=== PATIENT | female | born 1955 | race Caucasian/White ===

== ENCOUNTER 2022-05-09 10:07 | Outpatient (CLI) | payer MEDICARE, SELFPAY ==
--- NOTE | 2022-05-09 10:00 | RT.EKG_ITS ---
APPROVED REPORT Exam: Resting ECG Reason for Exam: palpitations Patient Location: O HR:61 bpm ECG Measurements Heart Rate 61 AXIS TX 164 P 36 QRSd 144 QRS 14 QT 445 T 16 QTc 449 Conclusion Sinus rhythm...normal P axis, V-rate 50- 99 Right bundle branch block...QRSd>120, terminal axis(90,270)
== END 2022-05-09 10:08 | disposition home or self-care (01) ==
LOC: DI.CM 10:07
PROVIDERS: PCP Family Medicine; Visit Provider Nurse Practitioner Family
DX: R00.2 Palpitations; I45.10 Unspecified right bundle-branch block
CPT/HCPCS: 93010

== ENCOUNTER 2022-05-09 10:52 | Outpatient (REF) | payer MEDICARE, SELFPAY ==
[2022-05-09 12:21] LABS: HCT 44.2 % (36.0-46.0); HGB 14.4 g/dL (11.2-15.7); MCH 28.7 pg (27.0-33.0); MCHC 32.6 % (32.0-36.0); MCV 88 fL (80-95); MPV 10.8 fL (8.0-11.0); Platelet Count 290 10^3/uL (130-400); RBC 5.02 10^6/uL (3.93-5.22); RDW 13.9 % (11.7-14.6); RDW-SD 44.6 fL
[2022-05-09 12:37] LABS: ALT 29 U/L (14-59); AST 21 U/L (15-37); Albumin 3.8 g/dL (3.4-5.0); Alkaline Phosphatase 107 U/L (46-116); Anion Gap 8.6 mmol/L (3-11); BUN 11 mg/dL (7-18); Bilirubin, Total 0.4 mg/dL (0.2-1.0); CO2 30.4 mmol/L (21.0-32.0); CREATININE 0.7 mg/dL (0.55-1.02); Calcium 9.3 mg/dL (8.5-10.1); Chloride 106 mmol/L (98-107); Estimated GFR 93.56 (mL/min/1.73m2); Glucose 104 mg/dL (74-106); Magnesium 2.1 mg/dL (1.8-2.4); Potassium 4.4 mmol/L (3.5-5.1); Sodium 145 mmol/L (136-145); Total Protein 7.3 g/dL (6.4-8.2)
== END 2022-05-09 10:53 | disposition home or self-care (01) ==
LOC: LBN 10:52
PROVIDERS: PCP Family Medicine; Visit Provider Nurse Practitioner Family
DX: R00.2 Palpitations (principal); R42 Dizziness and giddiness; R07.89 Other chest pain
CPT/HCPCS: 80053; 85027; 83735

== ENCOUNTER 2024-01-08 05:25 | Emergency (ER) | payer MEDICARE, SELFPAY ==
[2024-01-08] VITALS (17 sets, daily range): BP systolic 160–182; BP diastolic 61–91; PULSE 66–89; RESP 16–18; TEMP 36.9; O2SAT 95–100
--- NOTE | 2024-01-08 06:00 | DI.CT_ITS ---
Exam(s) CT ABDOMEN PELVIS CTA EXAM: CT ABDOMEN PELVIS CTA CLINICAL HISTORY: gi bleed. TECHNIQUE: Imaging Protocol: Axial CT angiography was performed with multi-slice acquisition and m ulti-planar and/or 3D reconstructions. CONTRAST MATERIAL: Intravenous: Omnipaque 350 Contrast volume:100 mL Oral: no COMPARISON: No exams were available for comparison FINDINGS: Vascular Structures: Minimal atherosclerotic changes. Celiac [place]:No evidence of stenosis. SMA: No evidence of stenosis. Renal Arteries: No evidence of stenosis. There is a single renal artery perfusing each kidney. Aorta: No aneurysm. No dissection. No significant stenosis. Iliac Arteries: No evidence of stenosis. Common Femoral Arteries: No evidence of stenosis. Soft Tissues:Small fat containing umbilical hernia. Lung bases:No acute findings. Liver: Enlarged. Moderate fatty infiltration. No measurable mass. Gallbladder and biliary tract: No evidence of calculi. No gallbladder wall thickening. No biliary di lation. Pancreas: Normal density, no abnormal calcifications or inflammatory process. Spleen: Normal. Kidneys: Normal size, contour and axis. No obstructive uropathy. No masses seen. Parapelvic cysts. No evidence of calculi. Adrenal glands: No masses seen. Bladder: Nearly empty. No gross wall thickening. No evidence of calculi. No evidence of mass. Bowel: No obstruction. Transverse colon through rectum contains very little stool. Question wall th ickening versus nondistention of the descending colon. No site of active GI bleeding identified. Peritoneal cavity: No ascites. No focal collection. No mesenteric inflammatory response. Bones: No acute findings. Degenerative changes in the spine and hips. Lymph nodes: Within normal limits. Reproductive: Calcified fibroid. IMPRESSION: No evidence active GI bleed. Question of thickening of the descending colon which could indicate col itis versus nondistention. RADIATION DOSE DELIVERED: 2,061.09mGy.cm Total DLP DATA REPOSITORY: All CT scans at this facility are submitted to the National Radiology Data Registry (NRDR) Dose Index Registry (DIR) with the [employer] (A[employer]). RADIATION OPTIMIZATION: All CT scans at this facility use at least one of these dose optimization te chniques: automated exposure control; mA and/or kV adjustment per patient size (includes targeted exa ms where dose is matched to clinical indication); or iterative reconstruction.
[2024-01-08 06:19] LABS: Abs Immature Grans 0.02 10^3/uL (0.0-0.06); Absolute Basophil Count 0.04 10^3/uL (0.0-0.2); Absolute Eosinophil Count 0.06 10^3/uL (0.0-0.7); Absolute Lymphocyte Count 1.61 10^3/uL (1.2-3.4); Absolute Monocyte Count 0.51 10^3/uL (0.1-0.8); Absolute Neutrophil Count 6.61 10^3/uL (1.2-6.7); Basophils % 0.5 %; Eosinophils % 0.7 %; HCT 42.9 % (36.0-46.0); HGB 13.5 g/dL (11.2-15.7); Immature Grans % 0.2 %; Lymphocytes % 18.2 %; MCH 28.4 pg (27.0-33.0); MCHC 31.5 % (32.0-36.0); MCV 90 fL (80-95); MPV 11.1 fL (8.0-11.0); Monocytes % 5.8 %; Neutrophils % 74.6 %; Platelet Count 374 10^3/uL (130-400); RBC 4.76 10^6/uL (3.93-5.22); RDW 13.9 % (11.7-14.6); RDW-SD 46.5 fL; WBC 8.85 10^3/uL (4.4-10.8)
--- NOTE | 2024-01-08 06:27 | NUR.NOTE ---
Nursing Note:pt ambulated to the BR, had looses fatty stool with dark red blood noted, MD aware
[2024-01-08 06:34] LABS: PTT Activated 28.3 sec (23.6-32.8); Prothrombin Time 9.9 sec (9.1-11.1)
[2024-01-08 06:37] LABS: ALT 26 U/L (14-59); AST 20 U/L (15-37); Albumin 3.9 g/dL (3.4-5.0); Alkaline Phosphatase 147 U/L (46-116); BUN 14 mg/dL (7-18); Bilirubin, Total 0.52 mg/dL (0.2-1.0); CREATININE 0.9 mg/dL (0.55-1.02); Calcium 9.6 mg/dL (8.5-10.1); Chloride 104 mmol/L (98-107); Estimated GFR 68.77 (mL/min/1.73m2); Glucose 122 mg/dL (74-106); Lipase 36 U/L (<78); Sodium 142 mmol/L (136-145); Total Protein 7.9 g/dL (6.4-8.2)
--- NOTE | 2024-01-08 06:43 | W.PCEDHO ---
Registration Status: Primary Language: Preferred Language: ED Information & Data Chief Complaint Abd Prob 01/08/24 05:42 Chief Complaint Abd Prob 01/08/24 05:37 Triage Note pt states that she has been 01/08/24 05:37 having constipation and then began to have severe abd pain/cramping then had a bm, each time she had cramps she had to go to the BR the pt stated that she began to have diarrhea and then later in the night noticed that there was blood in the toilet, stated that it was dark in color and then was a medium red. Slight nausea. recently had total right knee replacement in Nov Medical / Surgical History (Last Reviewed 05/09/22 @ 09:52 by Kimberly Middleton NP) Ductal carcinoma Ductal carcinoma in situ (DCIS) of right breast (Last Reviewed 05/09/22 @ 09:52 by Kimberly Middleton NP) Biopsy of breast Most Recent Vital Signs Temperature 36.9 C 01/08/24 05:42 Temperature Source Temporal Artery Scan 01/08/24 05:37 Pulse 70 01/08/24 06:29 Respiratory Rate 16 01/08/24 06:29 Respiratory Effort Normal 01/08/24 06:11 Respiratory Depth Normal 01/08/24 06:11 Respiratory Pattern Normal 01/08/24 06:11 Blood Pressure 182/70 H 01/08/24 06:29 Blood Pressure Mean 103 01/08/24 06:11 Blood Pressure Position Sitting 01/08/24 05:42 Pulse Oximetry 99 01/08/24 06:29 Oxygen Delivery Method Room Air 01/08/24 06:29 Oxygen Flow Rate 0 01/08/24 06:29 Pain Level 2 01/08/24 05:42 Allergies Penicillins Allergy (Unverified 01/08/24 05:47) unknown-occurred as Opioids - Morphine Analogues Adverse Reaction (Unknown, Unverified 01/08/24 05:47) feels like head races IV IV Catheter Type [Left Saline Lock Antecubital] IV Catheter Gauge [Left 18 Antecubital] Diagnostics 01/08/24 01/08/24 Range/Units 06:21 05:36 WBC 8.85 (4.4-10.8) 10^3/uL RBC 4.76 (3.93-5.22) 10^6/uL Hgb 13.5 (11.2-15.7) g/dL Hct 42.9 (36.0-46.0) % MCV 90 (80-95) fL MCH 28.4 (27.0-33.0) pg MCHC 31.5 L (32.0-36.0) % RDW 13.9 (11.7-14.6) % Plt Count 374 (130-400) 10^3/uL MPV 11.1 H (8.0-11.0) fL Immature Gran % 0.2 % Neutrophils % 74.6 % Lymphocytes % 18.2 % Monocytes % 5.8 % Eosinophils % 0.7 % Basophils % 0.5 % Nucleated RBC % 0.0 (0.0-0.3) % Absolute Neutrophils 6.61 (1.2-6.7) 10^3/uL Absolute Lymphocytes 1.61 (1.2-3.4) 10^3/uL Absolute Monocytes 0.51 (0.1-0.8) 10^3/uL Absolute Eosinophils 0.06 (0.0-0.7) 10^3/uL Absolute Basophils 0.04 (0.0-0.2) 10^3/uL PT 9.9 (9.1-11.1) sec INR 1.0 (0.9-1.1) APTT 28.3 (23.6-32.8) sec VBG Lactate 1.0 (0.6-1.4) mmol/L Sodium 142 (136-145) mmol/L Potassium 4.0 (3.5-5.1) mmol/L Chloride 104 (98-107) mmol/L Carbon Dioxide 27.0 (21.0-32.0) mmol/L Anion Gap 11.0 (3-11) mmol/L BUN 14 (7-18) mg/dL Creatinine 0.9 (0.55-1.02) mg/dL Est GFR (CKD-EPI 2020) 68.77 (mL/min/1.73m2) Glucose 122 H (74-106) mg/dL Calcium 9.6 (8.5-10.1) mg/dL Magnesium 2.0 (1.8-2.4) mg/dL Total Bilirubin 0.52 (0.2-1.0) mg/dL AST 20 (15-37) U/L ALT 26 (14-59) U/L Alkaline Phosphatase 147 H (46-116) U/L Total Protein 7.9 (6.4-8.2) g/dL Albumin 3.9 (3.4-5.0) g/dL Lipase 36 (<78) U/L Intake and Output - 24 Hour Total 01/08/24 05:25 thru 01/08/24 06:10 Weight 98.43 kg Other: Stool Occult Blood Positive Stool Characteristics Mucoid Brown Bloody Falls Risk Assessment History of Falls No History 01/08/24 05:42 Contributing Factors No Factors 01/08/24 05:42 Ambulatory Aids Independent 01/08/24 05:42 Tubes/Lines W/no contributing factors 01/08/24 05:42 Gait Evaluation No gait disturbance 01/08/24 05:42 Cognition No cognitive impairment 01/08/24 05:42 Fall Total Score 10 01/08/24 05:42 Level of Risk Standard/Low Risk 01/08/24 05:42 Notes 01/08/24 06:27 Nursing Notes by Marquis Bates Nursing Note:pt ambulated to the BR, had looses fatty stool with dark red blood noted, MD aware Initialized on 01/08/24 06:27 - END OF NOTE v v v v v v v v v Sending and/or Receiving Nurses: Please use comment section below to note any information pertinent to the patient hand-off not included above. Information / Comments: Report received from: Marquis Bates, RN @ 0640 01/08/24
--- NOTE | 2024-01-08 06:45 | ED.GENADUL_ITS ---
Discharge Plan Discharge Details Chief Complaint: Abd Prob Primary Care Provider: Fuentes [facility] ED Provider: Ashleigh Mendoza Home Meds and New Rx's Prescriptions: No Action multivitamin [One Daily Essential] 1 EACH tablet 1 ea PO DAILY celecoxib [Celebrex] 100 MG capsule 100 mg PO DAILY aspirin 325 mg tablet,delayed release (DR/EC) 325 mg PO ONCE cyclobenzaprine 5 mg tablet 5 mg PO DAILY Patient Comments: TAKE 1 TO 2 TABLETS BY MOUTH EVERY 8 HOURS NEEDED FOR PAIN AND FOR MUSCLE SPASM MAY CAUSE DROWSINESS HPI General Mode of arrival: ambulatory . Date/Time Provider Initiated Documentation: 01/08/24 05:45 . Limitations to Documentation: no limitations . Information obtained by: patient . HPI Narrative: 68yo F with hx knee replacement 1 month ago, otherwise healthy, presenting for abdominal pain and rectal bleeding. Symptoms started yesterday evening, diffuse severe abdominal cramping followed by watery diarrhea. As the night went on began to have bright red blood in her stool, last bowel movement about 30 minutes prior to arrival seemed 'almost all blood'. No melena/dark/tarry stool. Mild nausea, no vomiting. Pain was initially intermittent but is now constant. No alleviating or aggravating factors. Has never had anything like this happen before. No chest pain, shortness of breath, or lightheadedness. Taking aspirin post knee replacement, celebrex daily. Otherwise in her usual state of health with no fevers, chills, rash, back pain, dysuria, or other anastacio rns. Related Data Home Medications ?Medication ?Instructions ?Recorded ?Confirmed Celebrex 100 mg capsule (celecoxib) 100 mg PO DAILY 04/15/14 01/08/24 One Daily Essential (multivitamin) 1 ea PO DAILY 04/15/14 01/08/24 aspirin 325 mg tablet,delayed 325 mg PO ONCE 01/08/24 01/08/24 release cyclobenzaprine 5 mg tablet 5 mg PO DAILY 01/08/24 01/08/24 Allergies Allergy/AdvReac Type Severity Reaction Status Date / Time Penicillins Allergy unknown-occurred Unverified 01/08/24 05:47 as infant Opioids - Morphine Analogues AdvReac Unknown feels like Unverified 01/08/24 05:47 head races General Stated Complaint: Abd Prob VICTORIANO: 3 Review of Systems Narrative: see HPI Exam Narrative Exam Narrative: General: Alert, well appearing, well nourished, in no acute distress. Head: Normocephalic, atraumatic Neck: Trachea midline, ?Neck supple. ENT: ?MMM.? No oropharygeal lesions or exudate. Cardiac: ?RRR, no murmurs appreciated Resp: No respiratory distress. CTAB. Abd: ?Soft, non-distended, diffusely TTP with no rebound or guarding : ?No suprapubic tenderness. Rectal: Normal externa exam. No active bleeding. Normal digital exam, scant brown/mucousy stool on glove, no blood. Extremities: ?No deformities.? No peripheral edema. Neurologic: GCS 15. ? Moves all extremities freely against gravity Course Vital Signs Vital signs: Vital Signs Temperature 36.9 C 01/08/24 05:37 Pulse 89 01/08/24 05:37 Respiratory Rate 18 01/08/24 05:37 Blood Pressure 172/91 H 01/08/24 05:37 Pulse Oximetry 98 01/08/24 05:37 Temperature 36.9 C 01/08/24 05:42 Temperature Source Temporal Artery Scan 01/08/24 05:37 Pulse 70 01/08/24 06:29 Respiratory Rate 16 01/08/24 06:29 Respiratory Effort Normal 01/08/24 06:11 Respiratory Depth Normal 01/08/24 06:11 Respiratory Pattern Normal 01/08/24 06:11 Blood Pressure 182/70 H 01/08/24 06:29 Blood Pressure Mean 103 01/08/24 06:11 Blood Pressure Position Sitting 01/08/24 05:42 Pulse Oximetry 99 01/08/24 06:29 Oxygen Delivery Method Room Air 01/08/24 06:29 Oxygen Flow Rate 0 01/08/24 06:29 Pain Level 2 01/08/24 05:42 Lab/Test Results Lab/Test Results: Laboratory Tests Range/Units 01/08/24 01/08/24 05:36 06:21 WBC (4.4-10.8) 10^3/uL 8.85 RBC (3.93-5.22) 10^6/uL 4.76 Hgb (11.2-15.7) g/dL 13.5 Hct (36.0-46.0) % 42.9 MCV (80-95) fL 90 MCH (27.0-33.0) pg 28.4 MCHC (32.0-36.0) % 31.5 L RDW (11.7-14.6) % 13.9 Plt Count (130-400) 10^3/uL 374 MPV (8.0-11.0) fL 11.1 H Immature Gran % % 0.2 Neutrophils % % 74.6 Lymphocytes % % 18.2 Monocytes % % 5.8 Eosinophils % % 0.7 Basophils % % 0.5 Nucleated RBC % (0.0-0.3) % 0.0 Absolute Neutrophils (1.2-6.7) 10^3/uL 6.61 Absolute Lymphocytes (1.2-3.4) 10^3/uL 1.61 Absolute Monocytes (0.1-0.8) 10^3/uL 0.51 Absolute Eosinophils (0.0-0.7) 10^3/uL 0.06 Absolute Basophils (0.0-0.2) 10^3/uL 0.04 PT (9.1-11.1) sec 9.9 INR (0.9-1.1) 1.0 APTT (23.6-32.8) sec 28.3 VBG Lactate (0.6-1.4) mmol/L 1.0 Sodium (136-145) mmol/L 142 Potassium (3.5-5.1) mmol/L 4.0 Chloride (98-107) mmol/L 104 Carbon Dioxide (21.0-32.0) mmol/L 27.0 Anion Gap (3-11) mmol/L 11.0 BUN (7-18) mg/dL 14 Creatinine (0.55-1.02) mg/dL 0.9 Est GFR (CKD-EPI 2020) (mL/min/1.73m2) 68.77 Glucose (74-106) mg/dL 122 H Calcium (8.5-10.1) mg/dL 9.6 Magnesium (1.8-2.4) mg/dL 2.0 Total Bilirubin (0.2-1.0) mg/dL 0.52 AST (15-37) U/L 20 ALT (14-59) U/L 26 Alkaline Phosphatase (46-116) U/L 147 H Total Protein (6.4-8.2) g/dL 7.9 Albumin (3.4-5.0) g/dL 3.9 Lipase (<78) U/L 36 Medical Decision Making 68yo F with hx knee replacement 1 month ago, otherwise healthy, presenting for abdominal pain and rectal bleeding. Symptoms started yesterday evening, diffuse severe abdominal cramping followed by watery diarrhea and subsequently bright red blood per rectum. Otherwise well, no lightheadedness or chest pain. Taking ASA and celebrex. Hypertensive on arrival, vital signs otherwise reassuring. Diffuse abdominal tenderness on exam with no rebound or guarding, rectal exam with no active bleeding and no blood on digital exam. Suspect lower GI bleed (brisk upper GI also possible though would expect more hemocynamic instability). Pt with no risk factors for esophageal varices; is on ASA/celebrex raising concern for bleeding ulcer. Exam not concerning for perforated ulcer. Will give zofran for nausea, get labs/CT. -Labs reviewed as below, CBC reassuring with no leukocytosis or anemia, CMP with no actionable abnormalities, coags normal, lactate normal (unlikely mesenteric ischemia and no pain out of proportion) Subsequently did have very small bowel movement in the ED, brown stool mixed with scant amount bright red/mucousy blood. [place] Score 7 (low risk lower GI bleed), Ailyn-Blatchford score 0 (low-risk upper GI bleed); if remains stable without significant bleeding would consider discharge home to outpatient followup. Signed out to lauren bazan, plan to followup CT and reassess. Lab Data Lab results reviewed: Yes I reviewed the patient's lab results. Labs: Laboratory Tests Range/Units 01/08/24 01/08/24 05:36 06:21 WBC (4.4-10.8) 10^3/uL 8.85 RBC (3.93-5.22) 10^6/uL 4.76 Hgb (11.2-15.7) g/dL 13.5 Hct (36.0-46.0) % 42.9 MCV (80-95) fL 90 MCH (27.0-33.0) pg 28.4 MCHC (32.0-36.0) % 31.5 L RDW (11.7-14.6) % 13.9 Plt Count (130-400) 10^3/uL 374 MPV (8.0-11.0) fL 11.1 H Immature Gran % % 0.2 Neutrophils % % 74.6 Lymphocytes % % 18.2 Monocytes % % 5.8 Eosinophils % % 0.7 Basophils % % 0.5 Nucleated RBC % (0.0-0.3) % 0.0 Absolute Neutrophils (1.2-6.7) 10^3/uL 6.61 Absolute Lymphocytes (1.2-3.4) 10^3/uL 1.61 Absolute Monocytes (0.1-0.8) 10^3/uL 0.51 Absolute Eosinophils (0.0-0.7) 10^3/uL 0.06 Absolute Basophils (0.0-0.2) 10^3/uL 0.04 PT (9.1-11.1) sec 9.9 INR (0.9-1.1) 1.0 APTT (23.6-32.8) sec 28.3 VBG Lactate (0.6-1.4) mmol/L 1.0 Sodium (136-145) mmol/L 142 Potassium (3.5-5.1) mmol/L 4.0 Chloride (98-107) mmol/L 104 Carbon Dioxide (21.0-32.0) mmol/L 27.0 Anion Gap (3-11) mmol/L 11.0 BUN (7-18) mg/dL 14 Creatinine (0.55-1.02) mg/dL 0.9 Est GFR (CKD-EPI 2020) (mL/min/1.73m2) 68.77 Glucose (74-106) mg/dL 122 H Calcium (8.5-10.1) mg/dL 9.6 Magnesium (1.8-2.4) mg/dL 2.0 Total Bilirubin (0.2-1.0) mg/dL 0.52 AST (15-37) U/L 20 ALT (14-59) U/L 26 Alkaline Phosphatase (46-116) U/L 147 H Total Protein (6.4-8.2) g/dL 7.9 Albumin (3.4-5.0) g/dL 3.9 Lipase (<78) U/L 36 Quality:SDOH Health Related Social Needs: 2 No Data to Display [facility] Medical History Ductal carcinoma Ductal carcinoma in situ (DCIS) of right breast Surgical History Biopsy of breast Family History Mother Personal history of malignant neoplasm Social History Smoking/Tobacco Use Status: Former Tobacco Use Smoking risk assessment performed?: Yes Alcohol Intake: never Drug use: Never Substance use type: does not use
[2024-01-08] MEDS: Ondansetron 4 MG/2 ML VIAL IVP (07:17)
[2024-01-08] MEDS: Normal Saline - Diluent 50 ML VIAL IJ (07:21)
[2024-01-08] MEDS: Omnipaque 350 MG/ML 100 ML BTL IJ (07:21)
[2024-01-08] MEDS: Pantoprazole 40 MG VIAL IVP (07:36)
[2024-01-08] MEDS: FAMOTIDINE 20 MG/50 ML BAG 200 MG IVPB (07:36)
--- NOTE | 2024-01-08 08:11 | DI.VRAD_ITS ---
PROCEDURE INFORMATION: Exam: CTA Abdomen and Pelvis With Contrast Exam date and time: 01/08/2024 7:15 AM Age: 68 years old Clinical indication: Other: Rectal bleeding; Patient HX: Gi bleed; Rectal and cramping TECHNIQUE: Imaging protocol: Computed tomographic angiography of the abdomen and pelvis with contrast. Exam focused on the arteries. 3D rendering (Not supervised by radiologist): MIP and/or 3D reconstructed images were created by the technologist. COMPARISON: No relevant prior studies available. FINDINGS: Aorta: The aorta is nonaneurysmal. No aortic dissection. Celiac trunk and mesenteric arteries: No occlusion or significant stenosis. Renal arteries: No occlusion or significant stenosis. Right iliac arteries: No occlusion or significant stenosis. Left iliac arteries: No occlusion or significant stenosis. Liver: There is a diffuse decrease in hepatic parenchymal density, consistent with fatty infiltration. Gallbladder and biliary ducts: Unremarkable. Pancreas: The pancreas appears normal. Spleen: The spleen appears normal. Adrenal glands: The adrenals appear normal. Kidneys and ureters: Probable left renal sinus cysts. The kidneys enhance symmetrically and empty into non-dilated ureters. Stomach and bowel: The stomach appears unremarkable. The small bowel loops are not abnormally dilated. The large bowel loops are not abnormally dilated. Circumferential wall thickening in the mid and distal transverse colon and proximal descending colon concerning for possible colitis. No arterial contrast extravasation identified within the bowel concerning for CT evident active gastrointestinal bleeding. Appendix: The appendix appears normal. Intraperitoneal space: No ascites. No significant fluid collection. Lymph nodes: No enlarged lymph nodes. Urinary bladder: The bladder is distended and demonstrates no focal contour abnormality. Reproductive: Partially calcified uterine fibroid measuring up to 2.5 cm. Bones/joints: Unremarkable. Soft tissues: 9 mm fat containing umbilical hernia. IMPRESSION: 1. Circumferential wall thickening in the mid and distal transverse colon and proximal descending colon concerning for possible colitis. 2. No arterial contrast extravasation identified within the bowel concerning for CT evident active gastrointestinal bleeding. 3. Hepatic steatosis. Dictated and Authenticated by: Laz Montero MD. Ordering:ALBA Sotelo MD
[2024-01-08] MEDS: ACETAMINOPHEN 1,000 MG/100 ML BAG 400 MG IVPB (08:15)
--- NOTE | 2024-01-08 08:58 | W.EDPROG ---
Date of service: 01/08/24 Time of Service: 08:58 Medical Decision Making Patient was signed out to me by my colleague Dr. Reynolds. Please refer to HPI, physical exam, assessment and plan. At time of signout we are pending CT scan. Patient came in for abdominal cramping, and some bloody stools. This is resolved while here. She has had no foreign travel, no recent antibiotic use, no fever or chills. She denies any personal or family history of autoimmune condition like ulcerative colitis, Crohn's, lupus, scleroderma. On reassessment patient's pain and symptoms has resolved. No persistent bloody stools here, no persistent abdominal cramping. Repeat exam shows no evidence of an acute surgical abdomen. Laboratory workup demonstrates a stable hemoglobin, no anemia. BUN unremarkable, no suggestion of bleeding proximal to the ligament of Treitz, the patient's lipase is normal. Renal function normal. CT scan demonstrates evidence of questionable thickening of the descending colon, which could represent mild colitis, no evidence of an active GI bleed on angiography. Patient remains hemodynamically stable with no evidence of shock, no tachycardia or hypotension. Symptoms inconsistent with acute mesenteric ischemia, massive GI hemorrhage, or significant upper GI bleed. Patient was given Protonix and famotidine here. No indication for prolonged use with no signs or symptoms to suggest acute gastric bleed. Symptoms appear consistent with very mild colitis has a potential source of bleeding irritation. Will recommend avoidance of ibuprofen, aspirin and Celebrex for the next few days. Recommend transitioning to a bile bland diet for the next few days. No indication for emergent antibiotic therapy at this time based on symptomatology. Patient has described an intolerance to prolonged antibiotics in the past, she does have a mild penicillin allergy as well. I feel that Augmentin would not be beneficial in this scenario, nor prolong Cipro Flagyl with her history of antibiotic intolerance. We will give a prescription for single dose moxifloxacin to be used if she does not have improvement of her symptomatology over the next 2 to 3 days. Symptoms appear clinically inconsistent with infectious diarrhea with a lack of risk factors or red flags. Will place referral for outpatient surgical follow-up for colonoscopy. Recommend close follow-up with PCP. Discussed red flags for which to return. I have extensively reviewed the treatment plan and discharge instructions with the patient. I have addressed all patient concerns at this time. The patient was made aware of what symptoms to monitor for that would warrant a return to the emergency department. Discussed the plan with the patient, they demonstrate verbal understanding and agreement with our assessment and plan at this time. The documentation in this chart was dictated using [employer] dictation software. Please excuse any dictation errors. FINDINGS: Vascular Structures: Minimal atherosclerotic changes. Celiac [place]:No evidence of stenosis. SMA: No evidence of stenosis. Renal Arteries: No evidence of stenosis. There is a single renal artery perfusing each kidney. Aorta: No aneurysm. No dissection. No significant stenosis. Iliac Arteries: No evidence of stenosis. Common Femoral Arteries: No evidence of stenosis. Soft Tissues:Small fat containing umbilical hernia. Lung bases:No acute findings. Liver: Enlarged. Moderate fatty infiltration. No measurable mass. Gallbladder and biliary tract: No evidence of calculi. No gallbladder wall thickening. No biliary dilation. Pancreas: Normal density, no abnormal calcifications or inflammatory process. Spleen: Normal. Kidneys: Normal size, contour and axis. No obstructive uropathy. No masses seen. Parapelvic cysts. No evidence of calculi. Adrenal glands: No masses seen. Bladder: Nearly empty. No gross wall thickening. No evidence of calculi. No evidence of mass. Bowel: No obstruction. Transverse colon through rectum contains very little stool. Question wall thickening versus nondistention of the descending colon. No site of active GI bleeding identified. Peritoneal cavity: No ascites. No focal collection. No mesenteric inflammatory response. Bones: No acute findings. Degenerative changes in the spine and hips. Lymph nodes: Within normal limits. Reproductive: Calcified fibroid. IMPRESSION: No evidence active GI bleed. Question of thickening of the descending colon which could indicate colitis versus nondistention. Quality:[facility] Health Related Social Needs: No Data to Display Sign Out Sign Out Data: Sign Out Comment: 68yo overall healthy female, abdominal cramping & GI bleed. Suspect lower GI source. HDS, diffuse abdominal tenderness. labs reassuring. Pending CT. If CT negative would discharge home to outpatient followup. Last updated by Ashleigh Mendoza MD at 01/08/24 07:31 Discharge Plan Disposition Patient Disposition: Home Condition: Good Discharge Details Clinical Impression: Colitis Primary Care Provider: [facility] ED Provider: Richi Coreas Home Meds and New Rx's Prescriptions: New moxifloxacin 400 mg tablet 400 mg PO DAILY Qty: 1 0RF No Action multivitamin [One Daily Essential] 1 EACH tablet 1 ea PO DAILY celecoxib [Celebrex] 100 MG capsule 100 mg PO DAILY aspirin 325 mg tablet,delayed release (DR/EC) 325 mg PO ONCE cyclobenzaprine 5 mg tablet 5 mg PO DAILY Patient Comments: TAKE 1 TO 2 TABLETS BY MOUTH EVERY 8 HOURS NEEDED FOR PAIN AND FOR MUSCLE SPASM MAY CAUSE DROWSINESS Discharge Instructions Instructions: Colitis Additional Instructions: At this time you demonstrate evidence of mild colitis. This may be from irritation versus mild infection. Please stick with a liquid or bland diet for the next 3 to 4 days. Avoiding greasy foods, fatty foods, meat based products or spicy foods. Please take Tylenol as needed for pain. Avoid Motrin or ibuprofen. Please take Maalox or Pepto-Bismol daily to help with the irritation. If your symptoms do not improve over the next 24 to 48 hours, please take the single dose moxifloxacin antibiotic as prescribed. If you notice any worsening of your symptoms, or any new symptoms such as vomiting, diarrhea, fever, chills, shortness of breath, chest pain, numbness, weakness, or fainting , please return immediately to the emergency department for reevaluation. Please follow up with your primary care provider as soon as possible for reassessment and reevaluation. As always, it was a pleasure participating in your medical care today. Referrals: [facility] [Primary Care Provider] -
== END 2024-01-08 09:15 | disposition home or self-care (01) ==
PROVIDERS: Student in an Organized Health Care Education/Training Program; Emergency Provider Student in an Organized Health Care Education/Training Program; PCP Family Medicine
DX: K52.9 Noninfective gastroenteritis and colitis, unspecified (principal); R10.9 Unspecified abdominal pain; Z87.891 Personal history of nicotine dependence
CPT/HCPCS: 00123; 36415; 80053; 83690; 96365; 96375; 99285; 74174; 83605; 83735; 85025; 85610; 85730; J0131; J2405; J2470; J3490